=== PATIENT | female | born 1930 | race Caucasian/White ===

== ENCOUNTER 2018-02-09 14:57 | Inpatient (IN) | payer MEDICARE ==
[~2018-02-09] VITALS: Ht 157.5 cm; Wt 46.3 kg
[2018-02-09] MEDS ORDERED: FESO4TAB PO (15:17)
[2018-02-09] MEDS ORDERED: IV NORMAL SALINE 500 ML BAG IV ONE (15:30)
[2018-02-09 15:49] LABS: CARBON DIOXIDE 25 mmol/L (21-32); CHLORIDE 103 mmol/L (98-107); CREATININE 1.6 mg/dL (0.6-1.3); GLUCOSE 117 mg/dL (74-106); POTASSIUM 4.1 mmol/L (3.5-5.1); UREA NITROGEN, BLOOD 49 mg/dL (7-18)
[2018-02-09 15:58] LABS: BASOPHILS % (AUTO) 0.1 % (0.0-2.0); HEMATOCRIT 41.9 % (31.2-41.9); LYMPHOCYTES # (AUTO) 0.7 K/uL (20.0-40.0); MEAN CORPUSCULAR HEMOGLOBIN 30.1 uug (24.7-32.8); MEAN CORPUSCULAR HGB CONC 33 g/dL (32.3-35.6); MEAN CORPUSCULAR VOLUME 90.3 fL (75.5-95.3); MONOCYTES # (AUTO) 1.6 K/uL (2.0-10.0); MONOCYTES % (AUTO) 11.3 % (0.0-11.0); NEUTROPHILS # (AUTO) 11.7 K/uL (1.8-8.9); NEUTROPHILS % (AUTO) 83.6 % (38.5-71.5); PLATELET COUNT (AUTO) 161 K/uL (179-408); RED BLOOD CELL COUNT(AUTO) 4.64 MIL/uL (3.63-4.92)
[2018-02-09 16:41] LABS: BILIRUBIN,DIRECT 0.3 mg/dL (0.0-0.2); TOTAL PROTEIN, SERUM 8.1 g/dL (6.4-8.2)
[2018-02-09 16:48] LABS: *BLOOD, URINE 3+ (NEGATIVE); *CLARITY,URINE SLIGHTLY CLOUDY (CLEAR); *KETONES,URINE TRACE (NEGATIVE); *UROBILINOGEN,URINE 0.2 E.U./dl (NORMAL); LEUKOCYTE ESTERASE ,URINE 2+ (NEGATIVE); NITRITE, URINE NEGATIVE (NEGATIVE); UGLUCOSE NEGATIVE (NEGATIVE)
[2018-02-09 16:57] LABS: *PROTEIN,URINE 3+ (NEGATIVE)
[2018-02-09 16:58] LABS: *BILIRUBIN,URIN 1+ (NEGATIVE); *COLOR,URINE YELLOW (YELLOW)
[2018-02-09 17:04] LABS: BACTERIA,URINE MANY /HPF (NONE SEEN); SQUAMOUS EPITHELIAL CELL,UR FEW /HPF (NONE SEEN); WBC,URINE 50-80 /HPF (0-3)
[2018-02-09] MEDS ORDERED: CEFTRIAXONE 1 G in IV DEXTROSE 5% 50 ML IV ONE (17:45)
[2018-02-09] MEDS ORDERED: CEFTRIAXONE 1 G VIAL ONE (17:56)
[2018-02-09 18:41] VITALS: BP 142/78
--- NOTE | 2018-02-09 19:00 | NUR ---
Nurse Notes: Received 87 year old female from ER report given by Jenniffer GAITAN. Received patient accompanied by with no SOB or distress. Vital signs taken. patient and son oriented to the room, use of call light and safety precautions initiated. dr Aiden Jovel informed of the Lactic acid result of 2.3. Will endorse admission to incoming shift RN. Call light within reach.
[2018-02-09 19:37] VITALS: BP 140/84
--- NOTE | 2018-02-09 20:00 | NUR ---
Received pt in bed sitting up and noted to be alert and oriented. No s/s of acute distress noted at this time. Tele noted to be sinus rhythm. Unit orientation provided. Safe environment implemented. Will continue to monitor closely.
[2018-02-09] MEDS ORDERED: MORPHINE SULFATE 2 MG/1 ML DISP.SYRIN IV PRN (20:45)
[2018-02-09] MEDS ORDERED: ONDANSETRON 4 MG/2 ML VIAL IV PRN (20:45)
[2018-02-09] MEDS ORDERED: ACETAMINOPHEN 650 MG SUPP.RECT RC PRN (20:45)
[2018-02-09] MEDS ORDERED: IV D5 1/2 NS 1000 ML 1,000 ML IV PRN (20:45)
[2018-02-09 23:30] VITALS: BP 116/69
[2018-02-10] MEDS ORDERED: HEPARIN/D5W DRIP 500 ML ONE (00:07)
[2018-02-10] MEDS ORDERED: HEPARIN SODIUM,PORCINE 5,000 UNITS/ML VIAL IVP ONE (01:30)
[2018-02-10] MEDS: HEPARIN/D5W DRIP 500 ML IV PRN ×2 (01:40→14:48)
[2018-02-10 03:45] VITALS: BP 103/65
[2018-02-10 05:35] LABS: BASOPHILS % (AUTO) 0.1 % (0.0-2.0); HEMATOCRIT 40.1 % (31.2-41.9); HEMOGLOBIN 13.5 g/dL (10.9-14.3); LYMPHOCYTES # (AUTO) 1.1 K/uL (20.0-40.0); LYMPHOCYTES % (AUTO) 9.9 % (20.5-51.5); MEAN CORPUSCULAR HEMOGLOBIN 30.2 uug (24.7-32.8); MEAN CORPUSCULAR HGB CONC 34 g/dL (32.3-35.6); MEAN CORPUSCULAR VOLUME 89.9 fL (75.5-95.3); MONOCYTES % (AUTO) 9.2 % (0.0-11.0); NEUTROPHILS % (AUTO) 80.8 % (38.5-71.5); PLATELET COUNT (AUTO) 151 K/uL (179-408); RED BLOOD CELL COUNT(AUTO) 4.46 MIL/uL (3.63-4.92); WHITE BLOOD COUNT (AUTO) 11.1 K/uL (3.8-11.8)
--- NOTE | 2018-02-10 06:00 | NUR ---
Heparin drip infusing per protocol. No s/s of bleeding noted at this time. Pt remains AAO x 3. Safe environment implemented at all times. Tele monitor noted to be sinus rhythm.
[2018-02-10 06:03] LABS: IRON, SERUM 15 ug/dL (50-175)
[2018-02-10 06:08] LABS: ALANINE AMINOTRANSFERASE 99 U/L (14-59); ALKALINE PHOSPHATASE 78 U/L (50-136); ASPARTATE AMINOTRANSFERASE 304 U/L (15-37); BILIRUBIN,TOTAL 0.5 mg/dL (0.2-1.0); CARBON DIOXIDE 26 mmol/L (21-32); CHLORIDE 102 mmol/L (98-107); CHOLESTEROL 151 mg/dL (<200); CREATININE 1.8 mg/dL (0.6-1.3); GLUCOSE 162 mg/dL (74-106); HDL CHOLESTEROL 55 mg/dL (40-60); PHOSPHOROUS 4.4 mg/dL (2.5-4.9); POTASSIUM 4.1 mmol/L (3.5-5.1); TOTAL PROTEIN, SERUM 7.1 g/dL (6.4-8.2); TRIGLYCERIDES 99 MG/DL (30-150); UREA NITROGEN, BLOOD 55 mg/dL (7-18)
[2018-02-10 06:34] LABS: CREATINE KINASE, TOTAL 7224 U/L (26-192)
--- NOTE | 2018-02-10 07:15 | NUR ---
PATIENT WAS RECEIVED IN BED, NO DISTRESS NOTED AT THIS TIME, BED IN LOW POSITION, SIDE RAILS UP X2. BED ALARM ON. IV HEPARIN RUNNING ON LEFT FOREARM.
[2018-02-10] MEDS: PANTOPRAZOLE SODIUM 40 MG VIAL IV SCH (08:53)
[2018-02-10] MEDS ORDERED: HEPARIN SODIUM,PORCINE 5,000 UNITS/ML VIAL IV PRN (09:15)
[2018-02-10 10:57] VITALS: BP 104/62
[2018-02-10] MEDS: METOPROLOL TARTRATE 25 MG TABLET PO SCH ×2 (12:29→20:46)
[2018-02-10] MEDS ORDERED: IV D5 1/2 NS 1000 ML 1,000 ML IV PRN (14:00)
--- NOTE | 2018-02-10 14:40 | NUR ---
DR MCNEIL CONTACTED ABOUT BOLUS OF HEPARIN PER PROTOCOL AND ORDERS TO HOLD BOLUS BUT CONTINUE INCREASE BY 150UNITS/HR DUE TO POSSIBLE GI BLEED.
[2018-02-10 15:15] VITALS: BP 98/52
[2018-02-10] MEDS: IV D5 1/2 NS 1000 ML 1,000 ML IV PRN (16:07)
[2018-02-10] MEDS: CEFTRIAXONE 1 G in IV DEXTROSE 5% 50 ML IV SCH (18:30)
[2018-02-10 19:00] VITALS: BP 123/69
--- NOTE | 2018-02-10 19:17 | NUR ---
Patient has been cooperative with care, air mattress installed, wound care performed. Currently patient in bed, no distres noted at this time, bed in low position, side rails up x2. Bed alarm on. New IV inserted on right a/c.
--- NOTE | 2018-02-10 19:52 | NUR ---
Pt observed to be sitting up in bed and watching tv. Heparin drip infusing as ordered. No s/s of acute distress at this time. Safe environment implemented at all times. Call light within reach. Tele noted to be sinus rhythm with HR at 88 at this time
[2018-02-11] VITALS: BP 121/70
[2018-02-11] MEDS: HEPARIN/D5W DRIP 500 ML IV PRN (02:36)
[2018-02-11 04:00] VITALS: BP 127/70
[2018-02-11 04:05] LABS: BASOPHILS % (AUTO) 0.1 % (0.0-2.0); EOSINOPHILS % (AUTO) 0.5 % (0.0-7.0); HEMATOCRIT 31.6 % (31.2-41.9); HEMOGLOBIN 10.7 g/dL (10.9-14.3); LYMPHOCYTES # (AUTO) 1.2 K/uL (20.0-40.0); LYMPHOCYTES % (AUTO) 14.2 % (20.5-51.5); MEAN CORPUSCULAR HEMOGLOBIN 30.1 uug (24.7-32.8); MEAN CORPUSCULAR HGB CONC 34 g/dL (32.3-35.6); MONOCYTES # (AUTO) 0.7 K/uL (2.0-10.0); MONOCYTES % (AUTO) 8.5 % (0.0-11.0); NEUTROPHILS # (AUTO) 6.5 K/uL (1.8-8.9); NEUTROPHILS % (AUTO) 76.7 % (38.5-71.5); PLATELET COUNT (AUTO) 116 K/uL (179-408); RED BLOOD CELL COUNT(AUTO) 3.55 MIL/uL (3.63-4.92); WHITE BLOOD COUNT (AUTO) 8.5 K/uL (3.8-11.8)
[2018-02-11 04:20] LABS: ALANINE AMINOTRANSFERASE 90 U/L (14-59); ALKALINE PHOSPHATASE 59 U/L (50-136); ASPARTATE AMINOTRANSFERASE 210 U/L (15-37); BILIRUBIN,TOTAL 0.4 mg/dL (0.2-1.0); CARBON DIOXIDE 23 mmol/L (21-32); CHLORIDE 104 mmol/L (98-107); CREATINE KINASE, TOTAL 3423 U/L (26-192); CREATININE 1.3 mg/dL (0.6-1.3); GLUCOSE 114 mg/dL (74-106); MAGNESIUM 1.9 mg/dL (1.8-2.4); POTASSIUM 3.4 mmol/L (3.5-5.1); TOTAL PROTEIN, SERUM 5.8 g/dL (6.4-8.2); UREA NITROGEN, BLOOD 49 mg/dL (7-18)
--- NOTE | 2018-02-11 06:55 | NUR ---
Stable condition, pt remains AAO x 3. Wound care done. Heparin drip infusing per protocol on left forearm. IV sites observed to be patent. Frequent repositioning. Safe environment implemented.
--- NOTE | 2018-02-11 07:05 | NUR ---
Received report from warehouse supervisor 3rd shift nurse, patient in bed asleep, no distress noted at this time, bed in low position, side rails up x2.
[2018-02-11] MEDS: METOPROLOL TARTRATE 25 MG TABLET PO SCH ×2 (09:15→20:23)
[2018-02-11] MEDS: PANTOPRAZOLE SODIUM 40 MG VIAL IV SCH (09:16)
[2018-02-11] MEDS: ASPIRIN 81 MG TAB.CHEW PO SCH (09:16)
[2018-02-11] MEDS: IV D5 1/2 NS 1000 ML 1,000 ML IV PRN (10:26)
[2018-02-11] MEDS ORDERED: POTASSIUM CHLORIDE 20 MEQ TAB.PRT.SR PO ONE (10:45)
[2018-02-11 11:28] VITALS: BP 136/84
--- NOTE | 2018-02-11 12:53 | NUR ---
WOUND CARE CONSULT: PT PRESENTS WITH MULTIPLE WOUNDS, PRESENT ON ADMISSION INCLUDING PLANTAR TOES DEEP TISSUE INJURIES (INTACT), RT SIDE, RT HIP AND THIGH DTI/S (INTACT), DRY ABRASIONS TO HANDS, LEFT ELBOW, AND BACK WELL STAGE 3 ULCERS TO SACRAL/BUTTOCK AREAS. RECOMMENDATIONS MADE FOR WOUND CARE AND SKIN PROTECTION. DISCUSSED WITH NURSING STAFF. SOCIAL SERVICE AND DIETARY CONSULTS IN PLACE. PT ON FIRST STEP LOW AIRLOSS MATTRESS. PT REFUSES TO HAVE WOUND SURGEON CONSULT AT THIS TIME DUE TO PT BEING FOLLOWED AT A WOUND CLINIC. WILL SEE PRN. M D IN AGREEMENT WITH PLAN OF CARE.
[2018-02-11] MEDS ORDERED: Z GUARD REMEDY PASTE 57 GM TUBE TOP PRN (13:00)
[2018-02-11 15:57] VITALS: BP 137/71
[2018-02-11] MEDS: CEFTRIAXONE 1 G in IV DEXTROSE 5% 50 ML IV SCH (17:06)
--- NOTE | 2018-02-11 17:49 | NUR ---
Patient has been cooperative with care, patient is frequently repositioned, wound care performed and heels floated. Dietary consult saw patient and made recommendations with Dr. cota for order. Patient and son spoke in depth about her plan of care, and discussed discharge planning with son. Currently patient is in bed, no distress noted at this time, bed in low position, side rails up x2.
[2018-02-11 19:39] VITALS: BP 123/74
--- NOTE | 2018-02-11 20:00 | NUR ---
PATIENT IS AWAKE IN BED, AAOX4 FORGETFUL AT TIMES. DENIES PAIN OR ANY DISTRESS ON ASSESSMENT. AFEBRILE AT THIS TIME. SAFETY AND COMFORT MEASURES IN PLACE, WILL CONTINUE TO MONITOR PATIENT
[2018-02-11] MEDS: ASCORBIC ACID 500 MG TABLET PO SCH (20:23)
[2018-02-11] MEDS: Z GUARD REMEDY PASTE 57 GM TUBE TOP SCH (20:24)
[2018-02-12 03:48] VITALS: BP 119/72
[2018-02-12 06:06] LABS: BASOPHILS % (AUTO) 0.3 % (0.0-2.0); EOSINOPHILS # (AUTO) 0.1 K/uL (0.0-0.7); EOSINOPHILS % (AUTO) 1.2 % (0.0-7.0); HEMATOCRIT 31.3 % (31.2-41.9); HEMOGLOBIN 10.8 g/dL (10.9-14.3); LYMPHOCYTES % (AUTO) 16.9 % (20.5-51.5); MEAN CORPUSCULAR HEMOGLOBIN 30.9 uug (24.7-32.8); MEAN CORPUSCULAR HGB CONC 34 g/dL (32.3-35.6); MONOCYTES # (AUTO) 0.5 K/uL (2.0-10.0); MONOCYTES % (AUTO) 9.1 % (0.0-11.0); NEUTROPHILS # (AUTO) 4.2 K/uL (1.8-8.9); NEUTROPHILS % (AUTO) 72.5 % (38.5-71.5); PLATELET COUNT (AUTO) 118 K/uL (179-408); RED BLOOD CELL COUNT(AUTO) 3.48 MIL/uL (3.63-4.92); WHITE BLOOD COUNT (AUTO) 5.8 K/uL (3.8-11.8)
[2018-02-12] MEDS: PANTOPRAZOLE SODIUM 40 MG TABLET.DR PO SCH (06:07)
[2018-02-12] MEDS: IV D5 1/2 NS 1000 ML 1,000 ML IV PRN (06:08)
[2018-02-12 06:20] LABS: ALANINE AMINOTRANSFERASE 100 U/L (14-59); ALKALINE PHOSPHATASE 69 U/L (50-136); ASPARTATE AMINOTRANSFERASE 172 U/L (15-37); BILIRUBIN,TOTAL 0.4 mg/dL (0.2-1.0); CARBON DIOXIDE 26 mmol/L (21-32); CHLORIDE 110 mmol/L (98-107); CREATININE 0.9 mg/dL (0.6-1.3); GLUCOSE 94 mg/dL (74-106); MAGNESIUM 1.7 mg/dL (1.8-2.4); PHOSPHOROUS 2.7 mg/dL (2.5-4.9); POTASSIUM 4.2 mmol/L (3.5-5.1); TOTAL PROTEIN, SERUM 5.9 g/dL (6.4-8.2); UREA NITROGEN, BLOOD 26 mg/dL (7-18)
--- NOTE | 2018-02-12 06:51 | NUR ---
PATIENT SLEPT WELL THROUGH THE NIGHT. NO C/O PAIN OR ACUTE DISTRESS ON THIS SHIFT. COMPLIANT WITH CARE. AND MEDS. VSS WNL, NO FEVER ON THIS SHIFT. NO SIGNIFICANT CHANGES IN STATUS. SAFETY AND COMFORT MEASURES MAINTAINED AT ALL TIMES
--- NOTE | 2018-02-12 08:00 | NUR ---
AWAKE COOPERATE WELL C/O OF SOME NAUSEA AFTER EAT BREAKFAST MED PRN GIVEN ON FALL PRECAUTION BED ALARM ON AND CALL LIGHT IN REACH
--- NOTE | 2018-02-12 09:00 | NUR ---
DR BRADFORD SEE PATIENT AND ORDER LAB IN AM IV CONVERT TO HL
[2018-02-12] MEDS: Z GUARD REMEDY PASTE 57 GM TUBE TOP SCH ×2 (09:11→21:07)
[2018-02-12] MEDS: ASCORBIC ACID 500 MG TABLET PO SCH ×2 (09:12→21:05)
[2018-02-12] MEDS: ZINC SULFATE 220 MG CAPSULE PO SCH (09:12)
[2018-02-12] MEDS: ASPIRIN 81 MG TAB.CHEW PO SCH (09:12)
[2018-02-12] MEDS: MULTIVIT, IRON, MIN NO. 8, FA TABLET PO SCH (09:12)
[2018-02-12] MEDS: PROTEIN SUPPLEMENT (PROSTAT) 30 ML LIQUID PO SCH ×2 (09:12→17:12)
[2018-02-12] MEDS: METOPROLOL TARTRATE 25 MG TABLET PO SCH ×2 (09:13→21:06)
[2018-02-12 11:05] VITALS: BP 102/59
[2018-02-12] MEDS: CEPHALEXIN MONOHYDRATE 500 MG CAPSULE PO SCH ×2 (13:09→21:05)
[2018-02-12] MEDS ORDERED: MAGNESIUM OXIDE 400 MG TABLET PO ONE (14:45)
[2018-02-12 15:07] VITALS: BP 102/60
--- NOTE | 2018-02-12 18:00 | NUR ---
DR ELIZONDO WAS NOTIFY OF BLOOD CULTURE RESULT GM NEGATIVE ANA ONE OF TWO ON 02/09/18
--- NOTE | 2018-02-12 18:20 | NUR ---
STABLE HEMODYNAMIC STATUS ,PAIN UNDER CONTROL NO ACUTE DISTRESS SAFETY MEASURE PROVIDED CALL LIGHT IN REACH AND BED ALARM ON
[2018-02-12 19:38] VITALS: BP 114/66
--- NOTE | 2018-02-12 20:00 | NUR ---
PATIENT IS AWAKE IN BED FAMILY VISITING, AAOX3 DENIES PAIN OR ANY DISTRESS ON ASSESSMENT. NO FEVER AT PRESENT. SAFETY AND COMFORT MEASURES IN PLACE. WILL CONTINUE TO MONITOR PATIENT
[2018-02-13] MEDS ORDERED: BISACODYL 10 MG SUPP.RECT RC PRN
[2018-02-13] MEDS ORDERED: BISACODYL 10 MG SUPP.RECT RC ONE
[2018-02-13 03:43] VITALS: BP 125/72
[2018-02-13 05:55] LABS: BASOPHILS % (AUTO) 0.3 % (0.0-2.0); EOSINOPHILS # (AUTO) 0.1 K/uL (0.0-0.7); EOSINOPHILS % (AUTO) 1.9 % (0.0-7.0); HEMATOCRIT 32.4 % (31.2-41.9); HEMOGLOBIN 11.1 g/dL (10.9-14.3); LYMPHOCYTES # (AUTO) 1.2 K/uL (20.0-40.0); LYMPHOCYTES % (AUTO) 20.3 % (20.5-51.5); MEAN CORPUSCULAR HEMOGLOBIN 30.9 uug (24.7-32.8); MEAN CORPUSCULAR HGB CONC 34 g/dL (32.3-35.6); MEAN CORPUSCULAR VOLUME 90.2 fL (75.5-95.3); MONOCYTES # (AUTO) 0.7 K/uL (2.0-10.0); MONOCYTES % (AUTO) 12.7 % (0.0-11.0); NEUTROPHILS # (AUTO) 3.8 K/uL (1.8-8.9); NEUTROPHILS % (AUTO) 64.8 % (38.5-71.5); PLATELET COUNT (AUTO) 133 K/uL (179-408); RED BLOOD CELL COUNT(AUTO) 3.59 MIL/uL (3.63-4.92); WHITE BLOOD COUNT (AUTO) 5.8 K/uL (3.8-11.8)
[2018-02-13] MEDS: CEPHALEXIN MONOHYDRATE 500 MG CAPSULE PO SCH ×2 (06:02→14:03)
[2018-02-13] MEDS: PANTOPRAZOLE SODIUM 40 MG TABLET.DR PO SCH (06:02)
[2018-02-13 06:17] LABS: ALANINE AMINOTRANSFERASE 102 U/L (14-59); ALKALINE PHOSPHATASE 86 U/L (50-136); ASPARTATE AMINOTRANSFERASE 140 U/L (15-37); BILIRUBIN,TOTAL 0.5 mg/dL (0.2-1.0); CARBON DIOXIDE 29 mmol/L (21-32); CHLORIDE 108 mmol/L (98-107); CREATININE 0.9 mg/dL (0.6-1.3); GLUCOSE 102 mg/dL (74-106); MAGNESIUM 1.8 mg/dL (1.8-2.4); POTASSIUM 4.8 mmol/L (3.5-5.1); TOTAL PROTEIN, SERUM 5.9 g/dL (6.4-8.2); UREA NITROGEN, BLOOD 23 mg/dL (7-18)
--- NOTE | 2018-02-13 06:49 | NUR ---
PATIENT SLEPT WELL ON THIS SHIFT. DENIED PAIN OR ANY DISTRESS ON THIS SHIFT. AFEBRILE, VSS ATABLE. NO FURTHER CHANGES IN STATUS
[2018-02-13] MEDS: PROTEIN SUPPLEMENT (PROSTAT) 30 ML LIQUID PO SCH (08:00)
[2018-02-13] MEDS: MULTIVIT, IRON, MIN NO. 8, FA TABLET PO SCH (08:33)
[2018-02-13] MEDS: ZINC SULFATE 220 MG CAPSULE PO SCH (08:33)
[2018-02-13] MEDS: ASCORBIC ACID 500 MG TABLET PO SCH (08:33)
[2018-02-13] MEDS: ASPIRIN 81 MG TAB.CHEW PO SCH (08:33)
[2018-02-13] MEDS: METOPROLOL TARTRATE 25 MG TABLET PO SCH (08:34)
[2018-02-13] MEDS: Z GUARD REMEDY PASTE 57 GM TUBE TOP SCH (08:34)
--- NOTE | 2018-02-13 09:00 | NUR ---
AWAKE COOPERATE WELL NO ACUTE DISTRESS OR PAIN ON FALL PRECAUTION BED ALARM ON AND CALL LIGHT IN REACH
[2018-02-13 11:40] VITALS: BP 127/68
--- NOTE | 2018-02-13 12:30 | NUR ---
REFUSED DULCOLAX SUPP PRIOR D/C STATE FEEL OK ,DOES NOT NEED IT
--- NOTE | 2018-02-13 13:00 | NUR ---
D/C INSTRUCTION TO [facility] TODAY INFORM TO PT'/FAMILY REGARDING CONTINUE MEDICATION AND F/U WITH OWN PMD EDUCATION [facility] ,VERBALIZES UNDERSTAND AND SIGNS D/C SHEET HL WAS D/C PRIOR D/C SNF
[2018-02-13] MEDS ORDERED: MENT71OI TOP ×2 (13:30)
[2018-02-13] MEDS ORDERED: BISA10SU12 RC (13:30)
[2018-02-13] MEDS ORDERED: ACET-2154 PO (13:30)
[2018-02-13] MEDS ORDERED: ASPI-618 PO (13:30)
[2018-02-13] MEDS ORDERED: ZINC220C8 PO (13:30)
[2018-02-13] MEDS ORDERED: CRAN450T9 PO (13:30)
[2018-02-13] MEDS ORDERED: FERR325T22 PO (13:30)
[2018-02-13] MEDS ORDERED: PROT30LI PO (13:30)
[2018-02-13] MEDS ORDERED: ASCO500C18 PO (13:30)
[2018-02-13] MEDS ORDERED: DOCU-141 PO (13:30)
[2018-02-13] MEDS ORDERED: ACID1TAB4 PO (13:30)
[2018-02-13] MEDS ORDERED: CEPH500C2 PO (13:30)
[2018-02-13] MEDS ORDERED: Multivit, Iron, Min No. 8, Fa PO (13:30)
[2018-02-13] MEDS ORDERED: PANT40TA2 PO (13:30)
--- NOTE | 2018-02-13 14:30 | NUR ---
REPORT GIVEN TO NURSE AT SNF [facility]IA [facility]
--- NOTE | 2018-02-13 14:45 | NUR ---
D/C TO SNF VIA AMBULANCE CONDITION STABLE ALL BELONGING FAMILY /DAUGHTER TOOK HOME STATE WILL BRING TO SNF LATER
== END 2018-02-13 14:45 | DRG 871 ==
LOC: ER 14:58 → TELE 17:48 → MED 02-11 16:40
PROVIDERS: ADMIT Internal Medicine; ATTEND Internal Medicine
DX: A41.51 Sepsis due to Escherichia coli [E. coli] (principal); L89.153 Pressure ulcer of sacral region, stage 3; N17.0 Acute kidney failure with tubular necrosis; I21.A1 Myocardial infarction type 2; G93.40 Encephalopathy, unspecified; N39.0 Urinary tract infection, site not specified; D68.59 Other primary thrombophilia; M62.82 Rhabdomyolysis; K92.2 Gastrointestinal hemorrhage, unspecified; J98.11 Atelectasis; J90 Pleural effusion, not elsewhere classified; R65.20 Severe sepsis without septic shock; Z16.11 Resistance to penicillins; M16.12 Unilateral primary osteoarthritis, left hip; R32 Unspecified urinary incontinence; Z87.442 Personal history of urinary calculi; Z87.440 Personal history of urinary (tract) infections; K60.2 Anal fissure, unspecified; Z74.09 Other reduced mobility; G89.29 Other chronic pain; E86.0 Dehydration; D50.9 Iron deficiency anemia, unspecified; M81.0 Age-related osteoporosis without current pathological fracture; N21.0 Calculus in bladder; S70.01XA Contusion of right hip, initial encounter; S50.01XA Contusion of right elbow, initial encounter; X58.XXXA Exposure to other specified factors, initial encounter; Y93.E8 Activity, other personal hygiene; Y92.002 Bathroom of unspecified non-institutional (private) residence as the place of occurrence of the external cause; R74.0 Nonspecific elevation of levels of transaminase and lactic acid dehydrogenase [LDH]; E88.81 Metabolic syndrome and other insulin resistance; I25.10 Atherosclerotic heart disease of native coronary artery without angina pectoris; I70.0 Atherosclerosis of aorta; K56.41 Fecal impaction; K29.60 Other gastritis without bleeding; Z87.891 Personal history of nicotine dependence; N20.0 Calculus of kidney; I77.819 Aortic ectasia, unspecified site; R62.7 Adult failure to thrive; Z96.89 Presence of other specified functional implants; R73.9 Hyperglycemia, unspecified; S90.122A Contusion of left lesser toe(s) without damage to nail, initial encounter
CPT/HCPCS: 36415; 36556; 70030-TC; 71045; 73080; 73502; 73700; 82378; 82746; 83550; 83605; 83690; 83735; 84100; 84443; 85025; 85730; 86140; 86301; 87040; 87077; 87086; 93005; 93307; 97110; 97116; 97165; 97530; A4217; A4663; C1758; C9113; J0696; J1644; J2270; J2405; J3490; J7040; J7060